=== PATIENT | male | born 1990 | race Caucasian/White ===

== ENCOUNTER 2018-01-05 14:02 | Emergency (ER) | payer OTHER ==
[~2018-01-05] VITALS: Ht 182.9 cm; Wt 70.3 kg
[2018-01-05] MEDS ORDERED: HYDROCODONE-AP1 EAC6 PO (15:57)
[2018-01-05] MEDS ORDERED: KEFLEX500 M1 PO (16:33)
== END 2018-01-05 16:00 | disposition home or self-care (01) ==
LOC: ER 14:02
DX: S61.211A Laceration without foreign body of left index finger without damage to nail, initial encounter (principal); Z23 Encounter for immunization; W23.0XXA Caught, crushed, jammed, or pinched between moving objects, initial encounter; Y93.89 Activity, other specified; Y92.89 Other specified places as the place of occurrence of the external cause; Y99.0 Civilian activity done for income or pay